=== PATIENT | male | born 1955 | race Caucasian/White ===

== ENCOUNTER 2024-03-09 16:11 | Emergency (ER) | payer MEDICARE, BC, SELFPAY ==
[2024-03-09] VITALS (14 sets, daily range): BP systolic 129–158; BP diastolic 64–102; PULSE 61–78; RESP 18; TEMP 35.3; O2SAT 96–99; BMI 29.3
--- NOTE | 2024-03-09 16:52 | ED_ITS ---
HPI - General Adult General Chief complaint: Chest Pain Stated complaint: Chest pain Time Seen by Provider: 03/09/24 16:45 History of Present Illness HPI narrative: Patient reports sternal pain that is tender to the touch. He reports that this happens intermittently for the past month. Was seen at [facility] where an EKG was done and he was told to come to ED due to low heart rate. Chest pain is currently absent. 68-year-old man presenting to the emergency department with concern of reproducible sternal area chest discomfort. He describes it as a rectangle in the mid chest that comes and goes. Been on off over the last month or so. Apparently was noted to have a bradycardia when presented to the clinic and recommended to the emergency department for low heart rate. 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 Wondering he may have been aggravating this chest discomfort that he describes as a rectangle in the mid chest a pressure that is intermittent not associated with exertion, wondering if he may have aggravated this in his work. Intermittently short of air but not persistently so. He describes a need occasionally of just needing to take a deep breath. Began to think that it would be a good idea just to have this evaluated as I think he is considering this might represent cardiovascular disease. No noted rashes/blisters. Occasional minimal heartburn but not consistent with this symptom. Significant other notes that had a couple episodes of pericarditis. My deeper review of records shows pericarditis diagnosed in June of 2011. Did have an echocardiogram at that time which showed 55% ejection fraction no effusion. Related Data Allergies Allergy/AdvReac Type Severity Reaction Status Date / Time No Known Drug Allergies Allergy Verified 10/06/22 17:25 Review of Systems Status of ROS: Reports: 6 or more systems reviewed and unremarkable except as noted in History and below [facility] Social History Smoking Status: Never smoker How often do you have a drink containing alcohol: 4 or more times a week AUDIT-C Alcohol total score: 4 Non-prescribed substance use: denies use Exam Narrative: Exam Narrative: Very pleasant. Calm. Blunted affect. Easily. Lungs actually sound clear equal expansion excursion. No supraclavicular crepitus. Without consistently reproducible discomfort to palpation of the chest wall. No erythema or swelling. Extremities are well perfused without edema. Heart is irregularly irregular on auscultation. This appears to be consistent with PVCs that I am observing on monitor. These appear to be asymptomatic however for Mr. Shaver when I ask. Const: Vital Signs, click to edit/add: Vital Signs - 24 hr 03/09/24 16:15 03/09/24 16:31 03/09/24 16:32 Temperature 95.6 F L Pulse Rate 68 70 Pulse Rate [Pulse Oximeter] 78 Respiratory Rate 18 Blood Pressure 129/72 Blood Pressure [Ri ght Upper Arm] 149/64 H Pulse Oximetry 98 96 96 Oxygen Delivery Me thod Room Air 03/09/24 17:00 03/09/24 17:30 03/09/24 17:37 Temperature Pulse Rate 64 64 61 Pulse Rate [Pulse Oximeter] Respiratory Rate Blood Pressure 129/86 Blood Pressure [Ri ght Upper Arm] Pulse Oximetry 97 98 99 Oxygen Delivery Me thod 03/09/24 17:38 03/09/24 18:00 03/09/24 18:03 Temperature Pulse Rate 73 73 74 Pulse Rate [Pulse Oximeter] Respiratory Rate Blood Pressure 142/86 H Blood Pressure [Ri ght Upper Arm] Pulse Oximetry 98 99 98 Oxygen Delivery Me thod 03/09/24 18:04 03/09/24 18:30 03/09/24 18:33 Temperature Pulse Rate 68 72 66 Pulse Rate [Pulse Oximeter] Respiratory Rate Blood Pressure 152/102 H Blood Pressure [Ri ght Upper Arm] Pulse Oximetry 99 99 99 Oxygen Delivery Me thod Documenting provider has reviewed patient's vital signs: yes Course Vital Signs Vital signs: Initial Vital Signs Temperature 95.6 F L 03/09/24 16:15 Temperature Source Temporal Artery Scan 03/09/24 16:15 Pulse Rate 78 03/09/24 16:15 Respiratory Rate 18 03/09/24 16:15 Blood Pressure 149/64 H 03/09/24 16:15 Blood Pressure Mean 92 03/09/24 16:15 Pulse Oximetry 98 03/09/24 16:15 Oxygen Delivery Method Room Air 03/09/24 16:15 Vital Signs Temperature 95.6 F L 03/09/24 16:15 Pulse Rate 78 03/09/24 16:15 Respiratory Rate 18 03/09/24 16:15 Blood Pressure 149/64 H 03/09/24 16:15 Pulse Oximetry 98 03/09/24 16:15 Oxygen Delivery Method Room Air 03/09/24 16:15 Temperature 95.6 F L 03/09/24 16:15 Pulse Rate 67 03/09/24 18:34 Respiratory Rate 18 03/09/24 16:15 Blood Pressure 158/102 H 03/09/24 19:02 Pulse Oximetry 98 03/09/24 18:34 Oxygen Delivery Method Room Air 03/09/24 16:15 Medications Administered Medications: Discontinued Medications Generic Name Dose Route Start Last Admin Trade Name Freq PRN Reason Stop Dose Admin Sodium Chloride 1,000 mls @ 1,000 mls/hr 03/09/24 17:09 03/09/24 19:03 0.9 % Sodium Chloride 1000 Ml IV 03/09/24 18:08 Infused .Q1H ONE Infusion Medical Decision Making MDM Narrative Medical decision making narrative: Would evaluate for evidence of cardiovascular ischemia or disease. Continue to watch on monitor with these PVCs. I suspect that these PVCs were resulting in apparent bradycardia. Has not been actually bradycardic here. Could be chest wall strain given his work or pericarditis although this is discomfort is not persistently reproducible. Could otherwise represent some tachyarrhythmia or pericarditis or pneumomediastinum or pneumothorax. Will monitor here in the ER. Does not feel he needs any intervention for pain or nausea. Chest x-ray reviewed by me appears to show some pulmonary edema. Somewhat enlarged cardiac silhouette Radiology over-read as below Study:?XRay-Chest 1V PORTABLE-03/09/2024 5:31:31 PM Ordering Physician:GLO Final Report: Indication: Chest pain Technique: AP view of the chest. Comparison: None. Findings: Low lung volumes Moderately enlarged cardiomediastinal silhouette. Moderate interstitial prominence and pulmonary vascular prominence. No focal consolidation, pleural effusions, or visualized pneumothorax. Impression: Moderate pulmonary edema. Labs are reassuring though there is moderately elevated proBNP at about 1500 Throughout time in the emergency department continued to have PVCs including some bigeminy but apparently these were asymptomatic. Vitals stable with oximetry in high 90s and no respiratory distress otherwise. Does not appear to need diuresis. Do have concern of underlying heart failure that might be contributing. Will need further evaluation for this. I would try to quantify these PVCs. Would appear to be safe for discharge and would like to go. See patient discharge plan for further discussion Lab Data Lab results reviewed: Yes I reviewed the patient's lab results Labs: Lab Results 03/09/24 Range/Units 17:30 WBC 7.05 (4.50-11.00) K/uL RBC 3.81 L (4.30-5.90) m/uL Hgb 13.2 L (13.5-17.5) gm/dL Hct 38.2 (37.0-53.0) % MCV 100 (80-100) fL MCH 35 H (26-34) pg MCHC 35 (32-36) gm/dL RDW Coeff of Jackson 12.3 (11.5-15.5) % Plt Count 231 (140-440) K/uL Neut % (Auto) 45.5 (42.0-72.0) % Lymph % (Auto) 36.5 (20-44) % [place] % (Auto) 11.6 H (0.0-11.0) % Eos % (Auto) 4.5 (0.0-7.0) % Baso % (Auto) 1.0 (0.0-3.0) % Neut # (Auto) 3.21 (1.7-7.0) K/uL Lymph # (Auto) 2.57 (0.90-2.90) K/uL [place] # (Auto) 0.80 (0.00-0.90) K/UL Eos # (Auto) 0.32 (0.00-0.50) K/uL Baso # (Auto) 0.07 (0.00-0.30) K/uL Abs Immat Gran (auto) 0.06 (0.00-0.30) K/uL Imm/Tot Granulo (auto) 0.9 % D-Dimer Quant (PE/DVT) 0.12 (0.00-0.50) ug/ml Sodium 133 L (135-149) mmol/L Potassium 4.0 (3.6-5.1) mmol/L Chloride 101 (96-114) mmol/L Carbon Dioxide 29 (20-32) mmol/L Anion Gap 3 L (7-15) mEq/L BUN 12 (7-30) mg/dL Creatinine 0.6 (0.5-1.5) mg/dL Estimated Creat Clear 77.39 Estimated GFR 106 ml/min Glucose 101 (60-115) mg/dL Calcium 8.7 (8.4-10.6) mg/dL Total Bilirubin 0.5 (0.1-1.5) mg/dL Direct Bilirubin 0.1 (0.0-0.5) mg/dL AST 22 (12-35) U/L ALT 18 (4-50) U/L Alkaline Phosphatase 51 (40-150) U/L Troponin I < 0.01 L (0.01-0.04) ng/mL C-Reactive Protein < 0.5 L (0.5-1.0) mg/dL NT-Pro-B Natriuret Pep 1570 pg/mL Total Protein 7.2 (6.0-8.3) g/dL Albumin 4.2 (3.3-5.0) g/dL Lipase 38 (23-300) U/L Ethyl Alcohol < 0.01 L (0.01-0.03) % ECG Data Attestation: I personally reviewed and interpreted this ECG as follows: (Sinus rhythm with PVCs; frequent. Rate of 73) Discharge Plan Discharge Clinical Impression: Frequent PVCs, Air hunger, Chest pressure Patient Disposition: Home w/ Parent or Adult Condition: Stable Additional Instructions: Return Holter monitor per instructions. This information gets sent Cardiology and I would expect results in about a week or so. I would ask you then to follow up with your primary care provider to consider evaluation for your heart. This might include another echocardiogram or stress echocardiogram. Return here for increasing and persistent chest pain or shortness of breath, associated lightheadedness. Follow Up/Referrals: Bello Wolf MD [Primary Care Provider] - Stand Alone Forms: [facility] [employer] Info Instructions
--- NOTE | 2024-03-09 17:10 | XR_ITS ---
Patient: MARY SOLORIO Facility:?[facility] Patient ID:?[id number] Site Patient ID:?[id number]. Site :?[id number] Study:?XRay-Chest 1V PORTABLE-03/09/2024 5:31:31 PM Ordering Physician:GLO Final Report: Indication: Chest pain Technique: AP view of the chest. Comparison: None. Findings: Low lung volumes Moderately enlarged cardiomediastinal silhouette. Moderate interstitial prominence and pulmonary vascular prominence. No focal consolidation, pleural effusions, or visualized pneumothorax. Impression: Moderate pulmonary edema. Dictated by Isak Khan MD @ 03/09/2024 6:02:06 PM Signed by:?Isak Kahn MD @03/09/2024 6:02:06 PM (Electronic Signature)
[2024-03-09] MEDS: 0.9 % SODIUM CHLORIDE 1000 ml 1,000 ML IV (17:40)
[2024-03-09 17:46] LABS: Basophils Absolute Auto 0.07 K/uL (0.00-0.30); Eosinophils Absolute Auto 0.32 K/uL (0.00-0.50); Eosinophils Percent Auto 4.5 % (0.0-7.0); Hematocrit 38.2 % (37.0-53.0); Hemoglobin* 13.2 gm/dL (13.5-17.5); Immature Granulocytes Abs Auto 0.06 K/uL (0.00-0.30); Immature Granulocytes Pct Auto 0.9 %; Lymphocytes Absolute Auto 2.57 K/uL (0.90-2.90); Lymphocytes Percent Auto 36.5 % (20-44); Mean Corpuscular HGB Conc 35 gm/dL (32-36); Mean Corpuscular Hemoglobin 35 pg (26-34); Mean Corpuscular Volume 100 fL (80-100); Monocytes Percent Auto 11.6 % (0.0-11.0); Neutrophils Absolute Auto 3.21 K/uL (1.7-7.0); Neutrophils Percent Auto 45.5 % (42.0-72.0); Platelet Count* 231 K/uL (140-440); RDW Coefficient of Variation % 12.3 % (11.5-15.5); Red Blood Count 3.81 m/uL (4.30-5.90); White Blood Count* 7.05 K/uL (4.50-11.00)
[2024-03-09 17:50] LABS: Slide Review Reflex No
[2024-03-09 18:05] LABS: D Dimer Quantitative* 0.12 ug/ml (0.00-0.50)
[2024-03-09 18:15] LABS: Albumin* 4.2 g/dL (3.3-5.0); Chloride* 101 mmol/L (96-114)
[2024-03-09 18:16] LABS: Sodium* 133 mmol/L (135-149)
[2024-03-09 18:17] LABS: Creatinine* 0.6 mg/dL (0.5-1.5); Est. Creatinine Clearance* 77.39; Estimated Glomerular Filt Rate 106 ml/min
[2024-03-09 18:18] LABS: Alanine Aminotransferase* 18 U/L (4-50); Alkaline Phosphatase* 51 U/L (40-150); Anion Gap 3 mEq/L (7-15); Aspartate Amino Transferase* 22 U/L (12-35); Bilirubin Direct* 0.1 mg/dL (0.0-0.5); Bilirubin Total* 0.5 mg/dL (0.1-1.5); Blood Urea Nitrogen* 12 mg/dL (7-30); Carbon Dioxide* 29 mmol/L (20-32); Glucose* 101 mg/dL (60-115); Lipase* 38 U/L (23-300); Total Protein* 7.2 g/dL (6.0-8.3)
[2024-03-09 18:19] LABS: Calcium* 8.7 mg/dL (8.4-10.6)
[2024-03-09 18:23] LABS: C Reactive Protein* < 0.5 mg/dL (0.5-1.0); Ethanol* < 0.01 % (0.01-0.03)
[2024-03-09 18:34] LABS: NT Pro B Type NatriureticPept* 1570 pg/mL; Troponin I* < 0.01 ng/mL (0.01-0.04)
== END 2024-03-09 19:52 | disposition home or self-care (01) ==
PROVIDERS: Emergency Provider Family Medicine; PCP Family Medicine
DX: I49.3 Ventricular premature depolarization (principal); R07.89 Other chest pain; F45.8 Other somatoform disorders
CPT/HCPCS: 36415; 71045; 80048; 80076; 82077; 83690; 83880; 84484; 85025; 85379; 86140; 93005; 93225; 93226; 99284; 99285; J7030

== ENCOUNTER 2024-05-25 13:55 | Emergency (ER) | payer MEDICARE, BC, SELFPAY ==
[2024-05-25 14:05] VITALS: BP 151/76; PULSE 63; RESP 18; TEMP 36.8; O2SAT 98; BMI 28.9
--- NOTE | 2024-05-25 15:00 | CRLHL7_ITS ---
For Patients: As a result of the Century Cures Act, medical imaging exams and procedure reports are released immediately into your electronic medical record. You may view this report before your referring provider. If you have questions, please contact your health care provider. Indication: CHEST PAIN Technique: AP view of the chest. Comparison: 03/09/2024 Findings: Low lung volumes. Mildly enlarged cardiomediastinal silhouette. Mild pulmonary edema. Medial right lung base opacity. Impression: 1. Mild pulmonary edema. 2. Medial right lung base opacity is again seen, which may represent atelectasis or infection. Given persistence, consider outpatient CT for further evaluation. Dictated by Isak Khan MD @ 05/25/2024 3:29:07 PM (Electronically Signed)
[2024-05-25 15:06] LABS: Troponin, Point-of-Care* 0.01 ng/ml (0.01-0.04)
[2024-05-25 15:30] VITALS: BP 142/100; PULSE 72; RESP 18; O2SAT 97
[2024-05-25 15:37] LABS: Basophils Percent Auto 0.5 % (0.0-3.0); Eosinophils Percent Auto 1.7 % (0.0-7.0); Hematocrit 39.1 % (37.0-53.0); Hemoglobin* 13.5 gm/dL (13.5-17.5); Immature Granulocytes Pct Auto 0.5 %; Lymphocytes Percent Auto 15.6 % (20-44); Mean Corpuscular HGB Conc 35 gm/dL (32-36); Mean Corpuscular Hemoglobin 34 pg (26-34); Mean Corpuscular Volume 99 fL (80-100); Neutrophils Percent Auto 72.7 % (42.0-72.0); Platelet Count* 226 K/uL (140-440); RDW Coefficient of Variation % 12.2 % (11.5-15.5); Red Blood Count 3.94 m/uL (4.30-5.90); Slide Review Reflex No; White Blood Count* 12.24 K/uL (4.50-11.00)
[2024-05-25 15:46] LABS: Chloride* 97 mmol/L (96-114); D Dimer Quantitative* < 0.27 ug/ml (0.00-0.50); Potassium* 4.1 mmol/L (3.6-5.1); Sodium* 130 mmol/L (135-149)
[2024-05-25 15:49] LABS: Anion Gap 9 mEq/L (7-15); Blood Urea Nitrogen* 15 mg/dL (7-30); Calcium* 8.7 mg/dL (8.4-10.6); Carbon Dioxide* 24 mmol/L (20-32); Creatinine* 0.7 mg/dL (0.5-1.5); Est. Creatinine Clearance* 76.35; Estimated Glomerular Filt Rate 101 ml/min; Glucose* 96 mg/dL (60-115)
--- NOTE | 2024-05-25 16:03 | ED.CHESTPAIN ---
HPI - Chest Pain General Chief Complaint: Chest Pain <Danielito Cuellar MD - Last Filed: 05/26/24 19:53> Stated Complaint: Chest Pain, Shortness of Breath <Danielito Cuellar MD - Last Filed: 05/26/24 19:53> Time Seen by Provider: 05/25/24 14:07 <Danielito Cuellar MD - Last Filed: 05/26/24 19:53> History of Present Illness HPI narrative: Patient is a 69-year-old gentleman comes in today with chest pain. Patient has history of frequent PVCs. Upon arrival his EKG shows continued PVCs. Patient has history of pericardial effusions in the distant past. Also has history of pleuritic pain. He is in the process of being evaluated for his cardiac symptoms most prominently has frequent PVCs with Cardiology but his symptoms worsened today he developed chest pain. The pain is 6/10 in intensity in the anterior chest. He has no significant worsening with exertion. No diaphoresis no nausea no vomiting no fevers no chills. <Danielito Cuellar MD - Last Filed: 05/26/24 19:53> Related Data Home Medications: Home Medications ?Medication ?Instructions ?Recorded ?Confirmed furosemide 20 mg tablet 20 mg PO DAILY 05/25/24 05/25/24 isosorbide mononitrate 30 mg 30 mg PO DAILY 05/25/24 05/25/24 tablet,extended release 24 hr metoprolol succinate 25 mg 25 mg PO DAILY 05/25/24 05/25/24 tablet,extended release 24 hr <Danielito Cuellar MD - Last Filed: 05/26/24 19:53> Allergies/Adverse Reactions: Allergies Allergy/AdvReac Type Severity Reaction Status Date / Time No Known Drug Allergies Allergy Verified 10/06/22 17:25 <Danielito Cuellar MD - Last Filed: 05/26/24 19:53> Review of Systems Status of ROS Reports: 10 or more systems reviewed and unremarkable except as noted in History and below <Danielito Cuellar MD - Last Filed: 05/26/24 19:53> PFSH PFSH Social History: Social History Smoking Status: Never smoker How often do you have a drink containing alcohol: 4 or more times a week How often do you have six or more drinks on one occasion: Never AUDIT-C Alcohol total score: 4 Non-prescribed substance use: denies use service: No <Danielito Cuellar MD - Last Filed: 05/26/24 19:53> Exam Narrative Exam Narrative: EXAM GENERAL: Patient appears comfortable and well. EYES: No scleral icterus. LYMPH: No supraclavicular or cervical lymphadenopathy. SKIN: Visible skin seen during exam normal or with benign process only. EXT: No dependent lower extremity pedal edema. HEART: Regular rate and rhythm with no murmurs, rubs, or gallops. LUNGS: Clear to auscultation bilaterally with no crackles or wheezes. ABD: Soft, non tender, non distended. PSYCH: Good eye contact, speech is not pressured. <Danielito Cuellar MD - Last Filed: 05/26/24 19:53> Const Vital Signs, click to edit/add: Vital Signs - 24 hr 05/25/24 14:05 Temperature 98.2 F Pulse Rate [Right Pulse Oximeter] 63 Respiratory Rate 18 Blood Pressure [Right Upper Arm] 151/76 H Pulse Oximetry 98 Oxygen Delivery Method Room Air <Danielito Cuellar MD - Last Filed: 05/26/24 19:53> Vital Signs - 24 hr 05/25/24 14:05 Temperature 98.2 F Pulse Rate [Right Pulse Oximeter] 63 Respiratory Rate 18 Blood Pressure [Right Upper Arm] 151/76 H Pulse Oximetry 98 Oxygen Delivery Method Room Air <Stanford Dickson MD - Last Filed: 05/25/24 17:51> Course Course ED Course: Patient seen and examined. EKG reviewed showing frequent PVCs. Initial troponin D-dimer electrolytes and CBC are unremarkable. When patient will continue observation until 2nd troponin at 90 minutes can be obtained. <Danielito Cuellar MD - Last Filed: 05/26/24 19:53> Vital Signs Vital signs: Initial Vital Signs Temperature 98.2 F 05/25/24 14:05 Temperature Source Temporal Artery Scan 05/25/24 14:05 Pulse Rate 63 05/25/24 14:05 Pulse Rhythm Regular 05/25/24 14:05 Pulse Strength 3+ Normal 05/25/24 14:05 Respiratory Rate 18 05/25/24 14:05 Blood Pressure 151/76 H 05/25/24 14:05 Blood Pressure Mean 101 05/25/24 14:05 Blood Pressure Position Semi-Fowlers 05/25/24 14:05 Pulse Oximetry 98 05/25/24 14:05 Oxygen Delivery Method Room Air 05/25/24 14:05 Vital Signs Temperature 98.2 F 05/25/24 14:05 Pulse Rate 63 05/25/24 14:05 Respiratory Rate 18 05/25/24 14:05 Blood Pressure 151/76 H 05/25/24 14:05 Pulse Oximetry 98 05/25/24 14:05 Oxygen Delivery Method Room Air 05/25/24 14:05 Temperature 98.2 F 05/25/24 14:05 Pulse Rate 97 05/25/24 17:52 Respiratory Rate 18 05/25/24 17:52 Blood Pressure 145/78 H 05/25/24 17:52 Pulse Oximetry 97 05/25/24 15:30 Oxygen Delivery Method Room Air 05/25/24 14:05 <Danielito Cuellar MD - Last Filed: 05/26/24 19:53> Initial Vital Signs Temperature 98.2 F 05/25/24 14:05 Temperature Source Temporal Artery Scan 05/25/24 14:05 Pulse Rate 63 05/25/24 14:05 Pulse Rhythm Regular 05/25/24 14:05 Pulse Strength 3+ Normal 05/25/24 14:05 Respiratory Rate 18 05/25/24 14:05 Blood Pressure 151/76 H 05/25/24 14:05 Blood Pressure Mean 101 05/25/24 14:05 Blood Pressure Position Semi-Fowlers 05/25/24 14:05 Pulse Oximetry 98 05/25/24 14:05 Oxygen Delivery Method Room Air 05/25/24 14:05 Vital Signs Temperature 98.2 F 05/25/24 14:05 Pulse Rate 63 05/25/24 14:05 Respiratory Rate 18 05/25/24 14:05 Blood Pressure 151/76 H 05/25/24 14:05 Pulse Oximetry 98 05/25/24 14:05 Oxygen Delivery Method Room Air 05/25/24 14:05 Temperature 98.2 F 05/25/24 14:05 Pulse Rate 97 05/25/24 17:52 Respiratory Rate 18 05/25/24 17:52 Blood Pressure 145/78 H 05/25/24 17:52 Pulse Oximetry 97 05/25/24 15:30 Oxygen Delivery Method Room Air 05/25/24 14:05 <Stanford Dickson MD - Last Filed: 05/25/24 17:51> MDM - Chest Pain MDM Narrative Medical decision making narrative: Repeat troponin returns at 0.01. The patient is asymptomatic and okay to return home. He did display some premature beats and a few of them came in rather rapid succession. This happened during his stay here while on the monitor. He was asymptomatic throughout that time. He states that he has been on a Holter monitor and Zio patch in the past. He is okay to be discharged home to resume current plans. <Stanford Dickson MD - Last Filed: 05/25/24 17:51> Lab Data Labs: Lab Results 05/25/24 05/25/24 Range/Units 14:17 14:34 WBC 12.24 H (4.50-11.00) K/uL RBC 3.94 L (4.30-5.90) m/uL Hgb 13.5 (13.5-17.5) gm/dL Hct 39.1 (37.0-53.0) % MCV 99 (80-100) fL MCH 34 (26-34) pg MCHC 35 (32-36) gm/dL RDW Coeff of [place] 12.2 (11.5-15.5) % Plt Count 226 (140-440) K/uL Neut % (Auto) 72.7 H (42.0-72.0) % Lymph % (Auto) 15.6 L (20-44) % [place] % (Auto) 9.0 (0.0-11.0) % Eos % (Auto) 1.7 (0.0-7.0) % Baso % (Auto) 0.5 (0.0-3.0) % Neut # (Auto) 8.90 H (1.7-7.0) K/uL Lymph # (Auto) 1.90 (0.90-2.90) K/uL [place] # (Auto) 1.10 H (0.00-0.90) K/UL Eos # (Auto) 0.20 (0.00-0.50) K/uL Baso # (Auto) 0.10 (0.00-0.30) K/uL Abs Immat Gran (auto) 0.10 (0.00-0.30) K/uL Imm/Tot Granulo (auto) 0.5 % D-Dimer Quant (PE/DVT) < 0.27 (0.00-0.50) ug/ml Sodium 130 L (135-149) mmol/L Potassium 4.1 (3.6-5.1) mmol/L Chloride 97 (96-114) mmol/L Carbon Dioxide 24 (20-32) mmol/L Anion Gap 9 (7-15) mEq/L BUN 15 (7-30) mg/dL Creatinine 0.7 (0.5-1.5) mg/dL Estimated Creat Clear 76.35 Estimated GFR 101 ml/min Glucose 96 (60-115) mg/dL Calcium 8.7 (8.4-10.6) mg/dL POC Troponin I 0.01 (0.01-0.04) ng/ml <Danielito Cuellar MD - Last Filed: 05/26/24 19:53> Lab Results 05/25/24 05/25/24 Range/Units 14:17 14:34 WBC 12.24 H (4.50-11.00) K/uL RBC 3.94 L (4.30-5.90) m/uL Hgb 13.5 (13.5-17.5) gm/dL Hct 39.1 (37.0-53.0) % MCV 99 (80-100) fL MCH 34 (26-34) pg MCHC 35 (32-36) gm/dL RDW Coeff of [place] 12.2 (11.5-15.5) % Plt Count 226 (140-440) K/uL Neut % (Auto) 72.7 H (42.0-72.0) % Lymph % (Auto) 15.6 L (20-44) % [place] % (Auto) 9.0 (0.0-11.0) % Eos % (Auto) 1.7 (0.0-7.0) % Baso % (Auto) 0.5 (0.0-3.0) % Neut # (Auto) 8.90 H (1.7-7.0) K/uL Lymph # (Auto) 1.90 (0.90-2.90) K/uL [place] # (Auto) 1.10 H (0.00-0.90) K/UL Eos # (Auto) 0.20 (0.00-0.50) K/uL Baso # (Auto) 0.10 (0.00-0.30) K/uL Abs Immat Gran (auto) 0.10 (0.00-0.30) K/uL Imm/Tot Granulo (auto) 0.5 % D-Dimer Quant (PE/DVT) < 0.27 (0.00-0.50) ug/ml Sodium 130 L (135-149) mmol/L Potassium 4.1 (3.6-5.1) mmol/L Chloride 97 (96-114) mmol/L Carbon Dioxide 24 (20-32) mmol/L Anion Gap 9 (7-15) mEq/L BUN 15 (7-30) mg/dL Creatinine 0.7 (0.5-1.5) mg/dL Estimated Creat Clear 76.35 Estimated GFR 101 ml/min Glucose 96 (60-115) mg/dL Calcium 8.7 (8.4-10.6) mg/dL POC Troponin I 0.01 (0.01-0.04) ng/ml <Stanford Dickson MD - Last Filed: 05/25/24 17:51> Discharge Plan Discharge Clinical Impression: Chest pain <Danielito Cuellar MD - Last Filed: 05/26/24 19:53> Patient Disposition: Home, Self-Care <Danielito Cuellar MD - Last Filed: 05/26/24 19:53> Condition: Stable <Danielito Cuellar MD - Last Filed: 05/26/24 19:53> Additional Instructions: Resume current plans. Follow up with MD for ongoing management. Take medications as prescribed. Return if worsening. <Danielito Cuellar MD - Last Filed: 05/26/24 19:53> Prescriptions: No Action isosorbide mononitrate 30 mg tablet extended release 24 hr 30 mg PO DAILY furosemide 20 mg tablet 20 mg PO DAILY metoprolol succinate 25 mg tablet extended release 24 hr 25 mg PO DAILY <Danielito Cuellar MD - Last Filed: 05/26/24 19:53> Follow Up/Referrals: Bello Wolf MD [Primary Care Provider] - <Danielito Cuellar MD - Last Filed: 05/26/24 19:53> Stand Alone Forms: [facility] Info Instructions <Danielito Cuellar MD - Last Filed: 05/26/24 19:53>
[2024-05-25 17:52] VITALS: BP 145/78; PULSE 97; RESP 18
== END 2024-05-25 17:52 | disposition home or self-care (01) ==
PROVIDERS: Emergency Provider Internal Medicine; PCP Family Medicine
DX: R07.9 Chest pain, unspecified (principal)
CPT/HCPCS: 36415; 71045; 80048; 84484; 85025; 85379; 99283; 99284

== ENCOUNTER 2024-09-14 14:37 | Outpatient (CLI) | payer MEDICARE, BC, SELFPAY | END 2024-09-14 14:38 | disposition home or self-care (01) | LOC: AMB 09-18 00:09 | PROVIDERS: PCP Nurse Practitioner Family; Visit Provider Emergency Medicine Emergency Medical Services | DX: R42 Dizziness and giddiness (principal); I95.9 Hypotension, unspecified; R00.1 Bradycardia, unspecified | CPT/HCPCS: A0425; A0427 ==

== ENCOUNTER 2024-09-14 15:07 | Emergency (ER) | payer MEDICARE, BC, SELFPAY ==
[2024-09-14] VITALS (8 sets, daily range): BP systolic 129; BP diastolic 85; PULSE 45–70; RESP 18; TEMP 35.7; O2SAT 90–98; BMI 29.3
--- NOTE | 2024-09-14 15:49 | ED.GENADULT ---
HPI - General Adult General Date Seen: 09/14/24 Chief complaint: Arrhythmia/Palpitations Stated complaint: Lightheaded, dizzy Time Seen by Provider: 09/14/24 15:43 History of Present Illness HPI narrative: 69 yo M presenting to the ER today with lightheadedness and dizziness. He was at the dentist today for a tooth extraction. He receive 4 doses of lidocaine with epi for dental anesthesia and became hypotensive and bradycardic. He was brought in by EMS. Paramedics were unsure of his presenting heart rate but he had a systolic blood pressure of 67. Oral surgeon gave the patient 2 doses of atropine and 250 mL of saline. Patient is feeling better. Blood pressure came up to 107 and heart rate came up to the 70s. He is currently scheduled to get a pacemaker. Per medical record. In [place] ER 05/25/2024 for chest pain. Per that record, Has a history of frequent PVCs. She per records from [facility] link he has a history of nonrheumatic mitral valve regurgitation, ejection fraction less than 50%, nonobstructive coronary artery disease, history of nonsustained V-tach, He follows with [facility]. [place] to records from August 29 they were increasing his losartan and having him recheck a BMP. He was to follow-up with heart failure clinic in 1 month. Per cardiology notes from 08/29/2024 Luciano Shaver is a 69 y.o. male with history of nonischemic cardiomyopathy with EF 40>45%%, frequent PVCs/NSVT with a burden of around 25%, moderate nonobstructive coronary artery disease, moderate to severe mitral regurgitation, tobacco use, alcohol abuse, hypertension who is here for follow-up since last visit he underwent colonoscopy which had not shown any significant malignancy. Following this he underwent coronary angiogram which showed moderate nonobstructive coronary artery disease and EP study with which no significant VT was inducible. Linq monitor was implanted and he was started on beta-blockers. His Holter monitors had not shown any further bradycardia arrhythmias. At last Linq check he still had PVC burden of around 26% and metoprolol dose was increased to 37.5 mg once a day 5 days ago. We had ordered the cardiac MRI which unfortunately was truncated study and incomplete information obtained as patient was significantly claustrophobic and ended the study prematurely. He then underwent a PET scan which has not shown any cardiac sarcoid. At last visit I referred him to EP for consideration of antiarrhythmic therapy given ongoing high burden of PVCs. We had also recommended starting spironolactone which patient declined due to his side effect profile and risk of gynecomastia. Since that visit he met with EP MAUREEN Hollins and repeat echocardiogram was done which showed EF of 45%. Due to his ongoing low heart rates and PVCs pacemaker implantation was advised which is currently scheduled for 10/17/2024. This would allow for possibly suppression of PVCs and up titration of GDMT and addition of antiarrhythmics. It sounds like he has been doing fine lately. No recent trouble with shortness of breath. No recent chest pains. No new swelling in his legs. He has been taking all of his meds. It sounds like he does have fairly frequent PVCs and he believes his normal heart rate is typically in the 60s and he knows he has fairly frequent PVCs. His thinks it is usually about every 3rd or 4th heart beat. Patient reports that he used to be very symptomatic with PVCs and felt every palpitation. His symptoms went away after he stopped drinking so much diet Coke. He does not feel as PVCs anymore. However he knows he still has a lot of home. Related Data Home Medications ?Medication ?Instructions ?Recorded ?Confirmed furosemide 20 mg tablet 20 mg PO DAILY 05/25/24 09/14/24 isosorbide mononitrate 30 mg 30 mg PO DAILY 05/25/24 05/25/24 tablet,extended release 24 hr metoprolol succinate 25 mg 25 mg PO DAILY 05/25/24 09/14/24 tablet,extended release 24 hr atorvastatin 40 mg tablet 40 mg PO DAILY 09/14/24 09/14/24 sacubitril 24 mg-valsartan 26 mg 1 tab PO BID 09/14/24 09/14/24 tablet (Entresto) Allergies Allergy/AdvReac Type Severity Reaction Status Date / Time No Known Drug Allergies Allergy Verified 10/06/22 17:25 [facility] Social History Smoking Status: Never smoker How often do you have a drink containing alcohol: 4 or more times a week How often do you have six or more drinks on one occasion: Never AUDIT-C Alcohol total score: 4 Non-prescribed substance use: denies use service: No Exam Narrative: Exam Narrative: Constitutional: Appears well-developed and well-nourished. Alert. Conversant. Non toxic. HENT: Head: Atraumatic. Nose: Nose normal. Mouth/Throat: Oral mucosa is clear and moist. no trismus. Eyes: Conjunctivae normal. EOM normal. Pupils equal, round, and reactive to light. No scleral icterus. Neck: Normal range of motion. Neck supple. No tracheal deviation present. Cardiovascular: Normal rate, he does have a frequently skipping rhythm corresponding to visualize PVCs on his pvc monitor. No gallop. No friction rub. No murmur heard. Symmetric radial and DP artery pulses . No JVD Pulmonary/Chest: Effort normal. No stridor. No respiratory distress. No wheezes. No rales. No rhonchi . No tenderness. Abdominal: Soft. Bowel sounds normal. No distension. No mass. No tenderness. No rebound. No guarding. Musculoskeletal: RUE: Normal range of motion. No tenderness. No deformity LUE: Normal range of motion. No tenderness. No deformity RLE: Normal range of motion. No edema. No tenderness. No deformity LLE: Normal range of motion. No edema. No tenderness. No deformity Lymph: No cervical adenopathy. Neurological: Alert and oriented to person, place, and time. Normal strength. CN II-VII intact. No sensory deficit. GCS eye subscore is 4. GCS verbal subscore is 5. GCS motor subscore is 6. Normal coordination Skin: Skin is warm and dry. No rash noted. No pallor. Normal capillary refill. Psychiatric: Normal mood. Normal affect. Const: Vital Signs, click to edit/add: Vital Signs - 24 hr 09/14/24 15:13 09/14/24 15:15 09/14/24 15:43 Temperature 96.3 F L Pulse Rate 45 L Pulse Rate [Pulse Oximeter] 70 Respiratory Rate 18 Blood Pressure [Le ft Upper Arm] 129/85 Pulse Oximetry 94 94 90 Oxygen Delivery Me thod Room Air 09/14/24 15:45 09/14/24 16:00 09/14/24 16:02 Temperature Pulse Rate Pulse Rate [Pulse Oximeter] Respiratory Rate Blood Pressure [Le ft Upper Arm] Pulse Oximetry 92 93 95 Oxygen Delivery Me thod 09/14/24 16:15 09/14/24 17:20 Temperature Pulse Rate Pulse Rate [Pulse Oximeter] Respiratory Rate Blood Pressure [Le ft Upper Arm] Pulse Oximetry 92 98 Oxygen Delivery Me thod Course Vital Signs Vital signs: Initial Vital Signs Temperature 96.3 F L 09/14/24 15:13 Temperature Source Temporal Artery Scan 09/14/24 15:13 Pulse Rate 70 09/14/24 15:13 Respiratory Rate 18 09/14/24 15:13 Blood Pressure 129/85 09/14/24 15:13 Blood Pressure Mean 99 09/14/24 15:13 Blood Pressure Position Supine 09/14/24 15:13 Pulse Oximetry 94 09/14/24 15:13 Oxygen Delivery Method Room Air 09/14/24 15:13 Vital Signs Temperature 96.3 F L 09/14/24 15:13 Pulse Rate 70 09/14/24 15:13 Respiratory Rate 18 09/14/24 15:13 Blood Pressure 129/85 09/14/24 15:13 Pulse Oximetry 94 09/14/24 15:13 Oxygen Delivery Method Room Air 09/14/24 15:13 Temperature 96.3 F L 09/14/24 15:13 Pulse Rate 45 L 09/14/24 15:43 Respiratory Rate 18 09/14/24 15:13 Blood Pressure 129/85 09/14/24 15:13 Pulse Oximetry 98 09/14/24 17:20 Oxygen Delivery Method Room Air 09/14/24 15:13 Medical Decision Making MDM Narrative Medical decision making narrative: This is a very pleasant 69-year-old gentleman with a complex history of heart problems. He is currently big undergoing a complex workup through [facility] is on meds for congestive heart failure due to low ejection fraction. He also has a very high burden of PVCs and is scheduled to have a pacemaker implanted on October 17 so that they can suppress his PVCs. He has generally been doing well for the past several weeks. No episodes of chest pain, shortness of breath. No fluid buildup or other symptoms of worsening CHF. He was at the dentist today to get a cracked tooth pulled. He underwent for painful injections of lidocaine with epi to get his tooth numb. He apparently has a history of trauma from dentistry as a child when he had multiple dental extractions and cavities without any anesthesia at all. It sounds like the dental anesthesia was quite distressing for him and then he had an episode of near-syncope. He was apparently hypotensive and bradycardic and borderline unresponsive at the dentist's office. Unclear what his rhythm was. This may have been a vagal event. This may have been some other more sinister bradycardia. They established an IV, administered IV fluids and 2 doses of atropine (apparently 0.4 mg per each does?). Dentist office called 911. When paramedics arrived his 1st blood per sister was hypotensive and then his blood pressure and pulse rebounded without any further treatment. He is asymptomatic here in the ER. residential monitor shows sinus rhythm with frequent PVCs (every 3rd or 4th beat is a PVC). No evidence for 2nd or third-degree heart block. The patient is says he feels better and is requesting discharge home. His is very concerned about the syncopal event. We had a long discussion about the potential etiologies. The coincidence with painful injections in the mouth would strongly suggest this is a vasovagal event. However that cannot be definitively proven since we do not have access to any rhythm strips during the event itself. I contacted his public health administrator's office through [facility] and [facility]. Discussed with Dr. Montero, cardiology. We discussed whether not this symptom would warrant admission for cardiac monitoring or even transfer to [facility] so that they can expedite his pacemaker. Cardiology is very confident based on the timing and description of the events that this was a vasovagal event, and recommends against hospitalization or transfer. They would recommend that he continue on his current meds and follow up outpatient for his pacemaker. Discussed this plan of care with the patient and his family. Patient is agreeable. is somewhat reluctant. We discussed options including hospitalization here at [place] for cardiac monitoring. Patient does not want to do this and wants to discharge home. Therefore will discharge him home. Discussed return precautions and indications for immediate return to the ER. Patient and his are in agreement. ECG Data Attestation: I personally reviewed and interpreted this ECG as follows: Interpretation: Normal sinus rhythm with frequent premature ventricular complexes. Rate: 70 MS: 174 QRS axis: Normal axis. No pathologic Q-waves. ST segment/T wave: No ST segment elevations or depressions. QTc: 444. QT interval 412 Discharge Plan Discharge Clinical Impression: Near syncope, Frequent PVCs Instructions: Near Syncope (ED) Additional Instructions: As we discussed, please return to the ER immediately if you have any more episodes of dizziness, fainting spells, or lightheaded spells. Also watch for any other symptoms such as chest pain, shortness of breath, or more symptomatic PVCs. If you get worse at all, come back to the ER or see your public health administrator immediately. Please continue on your regular medications. Follow-up with your public health administrator in call Tuesday to see to can move up your planned time for your pacemaker. Prescriptions: No Action isosorbide mononitrate 30 mg tablet extended release 24 hr 30 mg PO DAILY furosemide 20 mg tablet 20 mg PO DAILY metoprolol succinate 25 mg tablet extended release 24 hr 25 mg PO DAILY atorvastatin 40 mg tablet 40 mg PO DAILY Entresto 24-26 mg tablet 1 tab PO BID Follow Up/Referrals: Bello Wolf MD [Staff Physician] - Stand Alone Forms: Employee Benefit Plans Info Instructions
== END 2024-09-14 17:27 | disposition home or self-care (01) ==
PROVIDERS: Emergency Provider Emergency Medicine; PCP Nurse Practitioner Family; Visit Provider Emergency Medicine
DX: R55 Syncope and collapse (principal); I49.3 Ventricular premature depolarization
CPT/HCPCS: 93005; 94761; 99283; 99285

== ENCOUNTER 2025-09-28 00:44 | Emergency (ER) | payer MEDICARE, BC, SELFPAY ==
--- OUTSIDE RECORDS SUMMARY | 2024-05-17 18:00 | XMS_ITS | Continuity of Care Document ---
Author Organization [facility] Address [address] [address] [place] [address] Phone Care Team Providers Care Bi Architect Name Role Phone Jasvir Wilcox MD Unavailable Unavailab le Procedures Procedure Date Colonoscopy Flex; W/remov Les- 24 Advance Directives Directive Yes / No Effective Date File Name No Information Encounters Encounter Description Practice Location Reason(s) For Visit Diagnoses Date Provider Providers Copied on Encounter [facility], [address] [address], [place], [place], [id number], [place] tel:[phone] [facility] No Information 4 Jeri Tay. [address] [place] [address], [id number], [place]. tel:[phone] [facility], [address] [address], [place], [place], [id number], [place] tel:[phone] [facility] No Information 4 Jeri Tay. [address] [place] [address], [id number], [place]. tel:[phone] Referring Provider: Jasvir Brito, [address] [place] [address], [id number]. tel:[phone] [facility], [address] [address], [facility] [place], [id number], [place] tel:[phone] [facility] No Information 4 Da Cronin. [address] [place] [address], [place], [place], [id number], [place]. tel:[phone] Family History Family Member Type Diagnosis Age At Onset No Information Immunizations Vaccine Date Status Comments tetanus toxoid, reduced diphtheria toxoid, and acellular pertussis vaccine, adsorbed administered Note: [facility] bi-direct ional interface ; Source: Other Registry Influenza, seasonal, injectable administe red Note: [facility] bi- directional interface ; Source: Other Registry Influenza, seasonal, injectable administe red Note: [facility] bi- directional interface ; Source: Other Registry Payers Payer name Insurance type Covered constitution party ID Authoriza tion(s) No Information Social History Type Description Quantity Date Captured Comments Sex Male Smoking Status No Information Chief Complaint And Reason For Visit No Information Reason For Referral Reason For Referral No Information History Of Present Illness Encounter Date Complaint History Of Prese nt Illness No Information Functional Status Date Functional Assessmen t No Information Instructions Date Instruction Additional Infor mation No Information Assessments Type Assessment Date No Information Patient Care Teams Name Effective Dates (start - stop) Status Members No Information
--- OUTSIDE RECORDS SUMMARY | 2024-05-17 18:00 | XMS_ITS | Continuity of Care Document ---
Author Organization [facility] Address [address] [address] [place] [address] Phone Care Team Providers Care Fiction Writer Name Role Phone Jasvir Wilcox MD Unavailable Unavailab le Procedures Procedure Date Colonoscopy Flex; W/remov Les- 24 Advance Directives Directive Yes / No Effective Date File Name No Information Encounters Encounter Description Practice Location Reason(s) For Visit Diagnoses Date Provider Providers Copied on Encounter [facility], [address] [address], [place], [place], [id number], [place] tel:[phone] [facility] No Information 4 Jeri Tay. [address] [place] [address], [id number], [place]. tel:[phone] [facility], [address] [address], [place], [place], [id number], [place] tel:[phone] [facility] No Information 4 Jeri Tay. [address] [place] [address], [id number], [place]. tel:[phone] Referring Provider: Jasvir Birto, [address] [place] [address], [address]. tel:[phone] [facility], [address] [address], [facility] [place], [id number], [place] tel:[phone] [facility] No Information 4 Da Cronin. [address] [place] [address], [place], [place], [id number], [place]. tel:[phone] Family History Family Member Type Diagnosis Age [...] Registry Payers Payer name Insurance type Covered democrat ID Authoriza tion(s) No Information Social History [...]
--- OUTSIDE RECORDS SUMMARY | 2025-09-28 00:47 | XMS_ITS | Clinical Summary ---
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 1 Bottle 9 Active betamethasone dipropionate 0.05% (DIPROLENE) 0.05 % ointmentIndications :Contact dermatitis and eczema Apply topically to affected area(s) 2 times daily. 50 g 2 0 Active furosemide (LASIX) 20 mg tabletIndications:A cute systolic heart failure (HC) Take 1 Tablet (20 mg) by mouth once daily in the morning. 90 Tablet 3 4 Active aspirin (ECOTRIN) 81 mg enteric coated tabletIndications:I schemia Take 1 Tablet (81 mg) by mouth once daily with a meal. 90 Tablet 3 4 Active atorvastatin (Lipitor) 40 mg tabletIndications:N onobstructive atherosclerosis of coronary artery Take 1 Tablet (40 mg) by mouth once daily. 90 Tablet 3 4 Active metoprolol succinate (TOPROL XL) 25 mg Sustained-Release tabletIndications:P VC (premature ventricular contraction) Take 2 Tablets (50 mg) by mouth two times daily. 180 Tablet 3 4 Active sacubitril-valsarta n (ENTRESTO 24 MG-26 MG TABLET) 24-26 mg tabletIndications:H FrEF (heart failure with reduced ejection fraction) (HC) Take 1 Tablet by mouth two times daily. NO further refills until seen by Cardiology. Call [phone] to schedule 180 Tablet 1 Active Active Problems Problem Noted Date Diagnosed Date Nonobstructive atherosclerosis of coronary arter y 06/12/2024 Nonischemic cardiomyopathy 06/12/2024 NSVT (nonsustained ventricular tachycardia) 05/22 Nonrheumatic mitral valve regurgitation 04/05/20 24 Ejection fraction < 50% 04/05/2024 FAY HST 02/2016 AHI-12 03/15/2016 Contact dermatitis and other eczema, due to unspecified cause 11/18/2011 Displacement of lumbar inter vertebral disc without myelopathy 11/24/2010 Sciatica 08/24/2010 Tobacco use disorder 07/18/2007 Resolved Problems Problem Noted Date Diagnosed Date Resolved Date Elevated blood pressure read ing without diagnosis of hypertension 11/18/2011 07/11/2025 Overview (11/18/2011): I suggested that we start medications today. 11/18/2011 Patient reluctant; wants to work at quitting smoking first. To follow up in 2 months; check blood pressure frequently in meantime. Macrocytosis without anemia 09/24/2010 11/18/2011 Encounters Date Type Department Care Team Description 08/22/2025 Procedure Only [facility] [address] [place] [address] Device Check (REMOTE [employer] DUAL CHAMBE... 08/21/2025 10:25 AM CDT Office Visit [facility] [address] [place] [address] Kaitlyn Carmona NP Ear Problem 08/21/2025 Travel 07/12/2025 8:45 AM CDT Office Visit [facility] [address] [facility] [place] [address] Kaitlyn Carmona NP Medicare ANNUAL (subsequent) Visit (Non fasting) 07/11/2025 Travel from Last 3 Months Immunizations Immunization Administration Dates Next Due AMB Influenza, IIV3 (Age >=3 years)(Flu Clinic [facility]) 10/08/2008 Influenza, IIV3 (Age >=3 years) 10/20/2007 Tdap 05/29/2010 Family History Medical History Relation Name Comments Heart Disease Brother 1 Chris Cancer Sister 1 Lazara Breast: eventua lly metastatic; of Liver complications 2010 Other Sister 2 Emani Rheumatic Fever w complications Anesthesia Problem No Family History Blood Disease No Family History Relation Name Status Comments Brother 1 Chris Alive Brother 2 Anthony Alive Father Donn (Age 80) Mother Freya (Age 85) Sister 1 Lazara (Age 64) Sister 2 Emani Alive Sister 3 Isaias Alive Social History Tobacco Use Types Packs/Day Years Used Date Smoking Tobacco: Former Cigarettes Q uit: 11/21/2014 Passive Smoke Exposure: Never Smokeless Tobacco: Never Tobacco Cessation:Counseling Given: Not Answered Comments:Quit smoking 07/10/2024 Alcohol Use Standard Drinks/Week Comments Not Currently 0 (1 standard drink = 0.6 oz pur e alcohol) quit drinking 07/10/2024 PHQ-2 Answer Date Recorded PHQ-2 TOTAL SCORE 0 07/12/2025 Social Connections Answer Date Recorded Do you often feel lonely or isolated from those around you? 0 07/11/2025 Alcohol Use Answer Date Recorded How often do you have a drink containing alcohol ? 0 08/21/2025 How many drinks containing a lcohol do you have on a typical day when you are drinking? 0 08/21/2025 How often do you have five or more drinks on one occasion? 0 08/21/2025 Financial Resource Strain Answer Date R ecorded Difficulty of Paying Living Expenses 3 07/11/2025 Difficulty of Paying Living Expenses Not on file 07/11/2025 Food Insecurity Answer Date Recorded Do you worry your food will run out before you are able to buy more? 1 07/11/2025 Transportation Needs Answer Date Record ed Does lack of transportation keep you from medica l appointments? 1 07/11/2025 Does lack of transportation keep you from work, meetings or getting things that you need? 1 07/11/2025 Housing Stability Answer Date Recorded What is your housing situation today? 1 07/11/2025 Interpersonal Safety Answer Date Record ed Are you being hit, kicked, p ushed or yelled at (see row info)? Unable to assess, family/SO in room. 10/04/2024 Interpersonal Safety Abuse 12 - 18 Not on file 10/04/2024 Interpersonal Safety Ambulat ory Vulnerability Not on file 10/04/2024 Utilities Answer Date Recorded Do you have trouble paying f or utilities (for example, heat, electricity, water, phone)? 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 [employer] Not on file Not on file Not on greta e Obstetrics History Last Filed Vital Signs Vital Sign Reading Time Taken Comments Blood Pressure 146/88 08/21/2025 11:22 AM CDT Pulse 78 08/21/2025 10:35 AM CDT Temperature 35.8 C (96.4 F) 09/13/2024 11:37 AM CDT Respiratory Rate 14 10/04/2024 9:26 AM [employer] Oxygen Saturation 97% 07/12/2025 8:46 AM CDT Inhaled Oxygen Concentration - - Weight 96.8 kg (213 lb 4.8 oz) 08/21/2025 10:35 AM CDT Height 180.3 cm (5' 11) 07/12/2025 8:46 AM CDT Body Mass Index 29.75 07/12/2025 8:46 AM CDT Plan of Treatment Upcoming Encounters Date Type Department Care Team (Late st Contact Info) Description 11/22/2025 Procedure Only [facility] [address] [facility] [address] [place] [address] Health Maintenance Due Date Last Done Comments Pneumococcal series for age 50+ (1 of 2 - PCV) 1976 Zoster (shingles) series for age 50+ (1 of 2) 2007 RSV vaccine for adults or (1 - Risk 60-74 years 1-dose series) 2017 Tetanus booster 05/29/2020 05/29/2010 AAA screening age 65-74 2022 Influenza Vaccine (#1) 2025 10/08/2008, 2006 BMI (ht and wt on same day) for age 18+ 07/12/2026 07/12/2025, 01/07/2025, 09/04/2024, Additional history exists Depression screening for age 12+ 07/12/2026 07/12/2025, 04/17/2024, 05/28/2020, Additional history exists Medicare Wellness for age 65+ 07/13/2026 07/12/2025 Colonoscopy through age 75 05/18/2027 05/18/2024 Lipids for age 45-75 03/27/2029 03/27/2024, 11/08/20 11 Hepatitis C screening for age 18-79 Completed 03/27/2024 Hepatitis B series for 19+ Aged Out N o longer eligible based on patient's age to complete this topic Procedures Procedure Name Priority Date/Time Associated Diagnosis Comments COLONOSCOPY 05/18/2024 9:49 AM CDT ANTI HCV Routine 03/27/2024 9:21 AM CDT Encounter for hepatitis C screening test for low risk patient LIPID PANEL W REFLEX MEASURED LDL Routine 03/27/2024 9:21 AM CDT Lipid screening from Last 3 Months or Most Recently Relevant to Health Maintenance Results * COLONOSCOPY (05/18/2024 9:49 AM CDT) 05/18/2024 9:49 AM CDT Narrative Transcriptions Jasvir Wilcox MD - 05/18/2024 10:29 AM CDT Patient Name: Luciano Shaver Procedure Date: 05/18/2024 Gender: Male Date of : 1955 Admit Type: Ambulatory Procedure: Colonoscopy Proceduralist: Jasvir Wilcox MD - [facility] Referring MD: Kaitlyn Carmona Indications/Pre-Op Diagnosis: Positive Cologuard test Medications: Monitored Anesthesia Care Procedure Description: The patient had risks, benefits and alternatives explained to andgave informed consent. The patient had a stable cardiopulmonary status and judged an adequate candidate for conscious sedation. The endoscope [id number]-[id number] was passed through the anus andadvanced to the cecum, identified by appendiceal orifice and ileocecal valve.The colonoscopy was performed without difficulty. The patient toleratedthe procedure well. The quality of the bowel preparation was good. Anatomical landmarks were photographed. Complications: No immediate complications. Estimated Blood Loss & Specimen: Estimated blood loss: none. Specimen collected: Yes and sent to Laboratory Findings: A 10 mm polyp was found in the transverse colon. The polyp wassessile. The polyp was removed with a cold snare. Resection and retrieval were complete. A 15 mm polyp was found in the sigmoid colon. The polyp was sessile.The polyp was removed with a cold snare. Resection and retrieval were complete. To prevent bleeding after the polypectomy, one hemostaticclip was successfully placed. There was no bleeding at the end of the procedure. A few diverticula were found in the sigmoid colon. Internal hemorrhoids were found during retroflexion. Impressions/Post-Op Diagnosis: - One 10 mm polyp in the transverse colon, removed with a cold snare. Resected and retrieved. - One 15 mm polyp in the sigmoid colon, removed with a cold snare. Resected and retrieved. Clip was placed. - Diverticulosis in the sigmoid colon. - Internal hemorrhoids. Recommendation: - Discharge patient to home. - Await pathology results. - Repeat colonoscopy for surveillance based on pathology results. - Return to primary care physician. Jasvir Wilcox MD 05/18/2024 10:29:22 AM Note Initiated On: 05/18/2024 9:49 AM Total Procedure Duration Time 0 hours 14 minutes 57 seconds Jasvir Wilcox MD PROCEDURE ORD Fin al Result * LIPID PANEL W REFLEX MEASURED LDL (03/27/2024 9:21 AM CDT) CHOLESTEROL,TOTAL 167 100 - 199 mg/dL 03/27/2024 6:55 PM CDT [facility] Comment: Cholesterol, Total Reference Ranges Desirable <200 mg/dL Borderline 200-239 mg/dL High >=240 mg/dL TRIGLYCERIDES 58 <150 mg/dL 03/27/2024 6:55 PM CDT [facility] HDL CHOLESTEROL 43 >40 mg/dL 6:55 PM CDT [facility] NON-HDL CHOLESTEROL 124 <145 mg/dl 03/27/2024 6:55 PM CDT [facility] CHOL/HDL RATIO 3.88 <4.50 03/27/2024 6:55 PM CDT [facility] LDL CHOLESTEROL 112 <=130 mg/dL 03/27/2024 6:55 PM CDT [facility] VLDL CHOLESTEROL 12 <=30 mg/dL 03/27/2024 6:55 PM CDT [facility] PROVIDER ORDERED STATUS RANDOM 03/27/2024 6:55 PM CDT [facility] Blood BLOOD SPECIMEN / Unknown Venipuncture / Unknown 03/27/2024 9:21 AM CDT 03/27/2024 9:21 AM CDT us Kaitlyn Carmona DIRECTOR OF COMPLIANCE CHEMISTRY Final Res ult [facility] [address] [place] [address], [place] * ANTI HCV (03/27/2024 9:21 AM CDT) HEPATITIS C ANTIBODY Non-Reacti ve Non-React pardeep 03/27/2024 8:29 PM CDT [facility] [employer] Comment:Please note, per www .CDC.gov: If a patient is known to be at high risk of HCV infection, or is symptomatic, and the physician's suspicion of HCV infection is high, HCV RNA testing is often employed and is of diagnostic value, even after an initial negative anti-HCV test result. Blood BLOOD SPECIMEN / Unknown Venipuncture / Unknown 03/27/2024 9:21 AM CDT 03/27/2024 9:21 AM CDT us Kaitlyn Carmona DIRECTOR OF COMPLIANCE SEND OUTS Final Res ult [facility] [address] [place] [address], [place] from Last 3 Months or Most Recently Relevant to Health Maintenance Insurance [facility] MEDICARE [place] ONLY MEDICARE PART A [place] ONLY Member Subscriber Plan / Payer (Ef fective 2023-Present) Name:Luciano Shaver Member ID:[id number] Relation to Subscriber:Self Name:Luciano Shaver Subscriber ID:[id number] Payer ID:Not on file Type:Not on file Address: ATTN: CLAIMS [address] MEDICARE PART B [place] ONLY Member Subscriber Plan / Payer ( fective 2023-Present) Name:Luciano Shaver Member ID:[id number] Relation to Subscriber:Self Name:Luciano Shaver Subscriber ID:[id number] Payer ID:Not on file Group ID:Not on file Type:Not on file Address: ATTN: CLAIMS [address] Advance Directives * Full Code (Latest Code Status on File) Date Activated Date Inactivated Comments 10/04/2024 12:08 PM 10/04/2024 6:42 PM Question Answer Comments Code Status Discussion: Reviewed Preferences * Full Code Date Activated Date Inactivated Comments 06/12/2024 10:20 AM 06/12/2024 8:17 PM Question Answer Comments Code Status Discussion: Reviewed Preferences * Full Code Date Activated Date Inactivated Comments 05/18/2024 8:29 AM 05/18/2024 6:39 PM Question Answer Comments Code Status Discussion: Reviewed Preferences Care Teams Rock Crushing Machine Operator Relationship Specialty [place] [address] [place] [address] PCP - General Nurse Practitioner 04/09/24
[2025-09-28 00:50] VITALS: BP 154/89; PULSE 74; RESP 16; TEMP 36.5; O2SAT 99; BMI 29.3
--- NOTE | 2025-09-28 00:58 | CRLHL7_ITS ---
For Patients: As a result of the Cures Act, medical imaging exams and procedure reports are released immediately into your electronic medical record. You may view this report before your referring provider. If you have questions, please contact your health care provider. INDICATION: Trauma, fall. TECHNIQUE: CT cervical spine without contrast. COMPARISON: None. FINDINGS: Vertebrae: Straightening of the normal cervical lordosis, which may be due to muscle spasm or positioning. There are no fractures or suspicious bony lesions. Discs and facet joints: Multilevel disc degeneration and facet arthropathy. Extraspinal findings: Paraspinous soft tissues are unremarkable. IMPRESSION: No acute fracture or traumatic subluxation of the cervical spine. Please note that all CT scans at this facility use dose modulation, iterative reconstruction, and/or weight-based dosing when appropriate to reduce radiation dose to as low as reasonably achievable. Dictated by Jared Fernandez MD @ 09/28/2025 1:57:05 AM (Electronically Signed)
--- NOTE | 2025-09-28 00:58 | CRLHL7_ITS ---
For Patients: As a result of the Century Cures Act, medical imaging exams and procedure reports are released immediately into your electronic medical record. You may view this report before your referring provider. If you have questions, please contact your health care provider. INDICATION: Trauma, fall. TECHNIQUE: CT head without contrast. COMPARISON: None. FINDINGS: CSF spaces: Proportionate prominence of the ventricles and sulci, reflecting mild generalized cerebral volume loss. Brain parenchyma: The arriaga-white differentiation is maintained. No evidence of intracranial hemorrhage, extra-axial collection, or midline shift. Skull base and calvarium: Mild mucosal thickening in the maxillary sinuses. Mastoid air cells are clear. The visualized orbits are grossly unremarkable. No skull fractures. Left vertex scalp soft tissue swelling. IMPRESSION: 1. No acute intracranial abnormality. 2. Left vertex scalp soft tissue swelling. No acute calvarial fracture. Please note that all CT scans at this facility use dose modulation, iterative reconstruction, and/or weight-based dosing when appropriate to reduce radiation dose to as low as reasonably achievable. Dictated by Jared Fernandez MD @ 09/28/2025 1:55:33 AM (Electronically Signed)
[2025-09-28] MEDS: LIDOCAINE/EPINEP/TETRACAINE 3 ML GEL..ML. TOPICAL (01:00)
--- NOTE | 2025-09-28 01:18 | ED.WOUNDLAC ---
HPI - Wound/Laceration General Date Seen: 09/28/25 Chief Complaint: Laceration/Wound Stated Complaint: head laceration Time Seen by Provider: 09/28/25 00:57 Source: patient, family, RN notes reviewed and old records reviewed Mode of arrival: ambulatory Limitations: no limitations History of Present Illness HPI narrative: Luciano is a 70-year-old male with out of date tetanus per his report, history of nonischemic cardiomyopathy with EF 40>45%%, frequent PVCs/NSVT with a burden of around 25%, moderate nonobstructive coronary artery disease, moderate to severe mitral regurgitation, tobacco use, alcohol abuse, hypertension, hyperlipidemia, hypertension not currently on blood thinners who comes to the emergency room for evaluation regarding a head wound. Perfecto states He was walking in the hallway in the entryway of his home and tripped over a box that had not been there previously. He fell forward catching the scalp on the door hinge. He had significant bleeding but no loss of consciousness. He denies any neck pain, vomiting, chest pain shortness of breath. He does admit to using alcohol tonight. Somewhat of a challenging historian. He denies tobacco use but his family knots that he does use tobacco. When asked about alcohol use also some evaluation. Does admit to more than 4 drinks tonight. Family Is with him tonight. His is able to confirm his medications. Denies any allergies. Related Data Home Medications ?Medication ?Instructions ?Recorded ?Confirmed furosemide 20 mg tablet 20 mg PO DAILY 05/25/24 09/14/24 isosorbide mononitrate 30 mg 30 mg PO DAILY 05/25/24 05/25/24 tablet,extended release 24 hr metoprolol succinate 25 mg 25 mg PO DAILY 05/25/24 09/14/24 tablet,extended release 24 hr atorvastatin 40 mg tablet 40 mg PO DAILY 09/14/24 09/14/24 sacubitril 24 mg-valsartan 26 mg 1 tab PO BID 09/14/24 09/14/24 tablet (Entresto) Allergies Allergy/AdvReac Type Severity Reaction Status Date / Time No Known Drug Allergies Allergy Verified 10/06/22 17:25 Review of Systems Status of ROS: Reports: 6 or more systems reviewed and unremarkable except as noted in History and below Const: Denies: fever Eyes: Denies: change in vision or blurry vision ENMT: Denies: neck pain Cardio: Denies: chest pain or lightheadedness Resp: Denies: cough GI: Denies: vomiting Musculo: Denies: back pain, neck pain or extremity pain Neuro: Denies: headache or weakness in extremities [facility] Social History Smoking Status: Never smoker How often do you have a drink containing alcohol: 4 or more times a week How many standard drinks containing alcohol do you have on a typical day: 3 or 4 How often do you have six or more drinks on one occasion: Never AUDIT-C Alcohol total score: 5 Non-prescribed substance use: denies use service: No Exam Narrative: Exam Narrative: I meet patient in exam room 5. His head is wrapped and as we remove it he it is noted that he has a large v-shaped laceration vertex anterior with significant bleeding from the left side. This is cleansed and 3 oliver are immediately placed and the wound is now hemostatic. Let is then applied to the rest of the wound. Airway is open Breathing is easy Circulation -bleeding from the wound now controlled. Disability -GCS of 15. Intoxicated with minimally slurred speech. No other deformities. Patient is alert and oriented. Evasive in answering some questions. Obeying commands. EOM is full and pupils are equal and round. Face symmetrical. Moist mucous membranes. Examination of the scalp shows a large v-shaped laceration with the tip anterior. Total length 8 cm. This compromises epidermis and dermis. After oliver are placed the rest of the wound is hemostatic. No neck pain with palpation. Heart with regular rate and rhythm and lungs are clear. Abdomen soft. Palpation of anterior chest thoracic spine lumbar spine without pain. No pain with palpation over knees lower extremities. Pelvis is stable. Const: Vital Signs, click to edit/add: Vital Signs - 24 hr 09/28/25 00:50 Temperature 97.7 F Pulse Rate [Pulse Oximeter] 74 Respiratory Rate 16 Blood Pressure [Ri ght Upper Arm] 154/89 H Pulse Oximetry 99 Oxygen Delivery Me thod Room Air Documenting provider has reviewed patient's vital signs: yes Course Course ED Course: Differential diagnosis includes head laceration -wound is now hemostatic. Given history of alcohol use cannot exclude underlying head bleed skull fracture given the significance of the laceration this appears to be quite traumatic. Given alcohol use cannot exclude underlying cervical spine injury. Thus head and cervical spine CTs are ordered. Let is applied with the hopes that we can place oliver in the rest of the wound upon his return. Did clarify that this fall was not down steps but was from standing position. Reevaluation(s) Reevaluation #1: Patient noted to have continued bleeding from the left side of his head. We were able to clean off more of the wound and the laceration actually extends even further down. Length of the laceration on the left side is 7 cm and on the right 4 cm further oliver were placed along with Gelfoam in this did stop the bleeding. Reevaluation #2: Patient's last tetanus confirmed in 2009. Adacel will be ordered. Vital Signs Vital signs: Initial Vital Signs Temperature 97.7 F 09/28/25 00:50 Temperature Source Temporal Artery Scan 09/28/25 00:50 Pulse Rate 74 09/28/25 00:50 Respiratory Rate 16 09/28/25 00:50 Blood Pressure 154/89 H 09/28/25 00:50 Blood Pressure Mean 110 H 09/28/25 00:50 Blood Pressure Position Sitting 09/28/25 00:50 Pulse Oximetry 99 09/28/25 00:50 Oxygen Delivery Method Room Air 09/28/25 00:50 Vital Signs Temperature 97.7 F 09/28/25 00:50 Pulse Rate 74 09/28/25 00:50 Respiratory Rate 16 09/28/25 00:50 Blood Pressure 154/89 H 09/28/25 00:50 Pulse Oximetry 99 09/28/25 00:50 Oxygen Delivery Method Room Air 09/28/25 00:50 Temperature 97.7 F 09/28/25 00:50 Pulse Rate 74 09/28/25 00:50 Respiratory Rate 16 09/28/25 00:50 Blood Pressure 154/89 H 09/28/25 00:50 Pulse Oximetry 99 09/28/25 00:50 Oxygen Delivery Method Room Air 09/28/25 00:50 Medications Administered Medications: Discontinued Medications Generic Name Dose Route Start Last Admin Trade Name Freq PRN Reason Stop Dose Admin Diphtheria/Tetanus/Acell Pertussis 0.5 ml 09/28/25 01:38 09/28/25 01:41 Tetanus/Diphth/Pertussis 0.5 Ml Syringe IM 09/28/25 01:39 0.5 ml .ONCE ONE Administration Lidocaine/Epinephrine/Tetracaine 3 ml 09/28/25 00:58 09/28/25 01:00 Lidocaine/Epinep/Tetracaine 3 Ml Gel..Ml. TOPICAL 09/28/25 00:59 3 ml ONCE ONE Administration MDM - Wound/Laceration MDM Narrative Medical decision making narrative: 1. Head laceration - v-shaped laceration quite large on the posterior prior to scalp is sutured as well as stapled. Continued increased bleeding from the left with discovery of further extension of the laceration. Treated with oliver and Gelfoam with success. On the right side an apex of the wound swelling of the tissue itself was such that the sutures were necessary in lieu of oliver. Three separate sutures were placed. Both oliver and sutures should be removed in 10 days time. Monitor for signs and symptoms of infection and seek medical attention should these occur. 2. Closed head injury - no L loss of consciousness. Patient has bruising on both the frontal and posterior parietal area from trauma. Would avoid alcohol for the next week and seek medical attention for vomiting, change in personality, increasing headache and as needed 3. Alcohol use- patient with a GCS of 15, cooperative. Recommend abstinence over the next week while monitoring head injury 4. tetanus update-Tetanus given tonight. 5. Disposition-Home at this time. Seek medical attention for worsening symptoms and as needed. Medical Records Attestation: I reviewed the patient's medical records. Imaging Data cervical spine CT: Attestation: I have reviewed the pertinent imaging results. My impression: No evidence of fracture. Radiologist's impression: Vertebrae: Straightening of the normal cervical lordosis, which may be due to muscle spasm or positioning. There are no fractures or suspicious bony lesions. Discs and facet joints: Multilevel disc degeneration and facet arthropathy. Extraspinal findings: Paraspinous soft tissues are unremarkable. IMPRESSION: No acute fracture or traumatic subluxation of the cervical spine. CT scan - head: Attestation: I have reviewed the pertinent imaging results. My impression: By my read no skull fracture intraparenchymal bleed. Radiologist's impression: CSF spaces: Proportionate prominence of the ventricles and sulci, reflecting mild generalized cerebral volume loss. Brain parenchyma: The arriaga-white differentiation is maintained. No evidence of intracranial hemorrhage, extra-axial collection, or midline shift. Skull base and calvarium: Mild mucosal thickening in the maxillary sinuses. Mastoid air cells are clear. The visualized orbits are grossly unremarkable. No skull fractures. Left vertex scalp soft tissue swelling. IMPRESSION: 1. No acute intracranial abnormality. 2. Left vertex scalp soft tissue swelling. No acute calvarial fracture. Discharge Plan Discharge Clinical Impression: Laceration, Closed head injury, Tetanus toxoid inoculation Patient Disposition: Home, Self-Care Condition: Improved Additional Instructions: staple and suture removal in 10 days time. You may shower with this wound gently cleansing with soap but do not submerge her head such as with swimming or in a pool. Seek medical attention for signs of infection such as pus from the wound, fever. Monitor for concussion. Seek medical attention for vomiting, change in thinking. Avoid alcohol for the next week. Return as needed. Prescriptions: No Action isosorbide mononitrate 30 mg tablet extended release 24 hr 30 mg PO DAILY furosemide 20 mg tablet 20 mg PO DAILY metoprolol succinate 25 mg tablet extended release 24 hr 25 mg PO DAILY atorvastatin 40 mg tablet 40 mg PO DAILY Entresto 24-26 mg tablet 1 tab PO BID Follow Up/Referrals: Kaitlyn Carmona, POISER, [employer]ION OFFICER [Primary Care Provider, Family Practice] Stand Alone Forms: [facility] Info Instructions Procedures Laceration Laceration 1: Pre procedure diagnosis: V-shaped flap laceration scalp Post procedure diagnosis: laceration repair scalp Site marking: not applicable Name of person performing procedure: Pamela Watson Site: scalp Size (cm): 11 Description: linear, flap and clean Depth: simple, single layer Local Anesthetic: lidocaine 1% and with epi Amount of anesthesia used (mL): 1.5 Pre-repair: wound explored Skin layer closed with: nylon Size (cm): 4-0 Number of sutures: 3 Technique: simple, interrupted ( 1 simple stitch anterior to horizontal mattress), horizontal mattress ( horizontal mattress 1 anterior to 2 oliver on the right) and other ( subcutaneous stitch on the flap V.) Estimated blood loss (if any): less than 5mls Conclusion: patient tolerated procedure
[2025-09-28] MEDS: TETANUS/DIPHTH/PERTUSSIS 0.5 ML SYRINGE IM (01:41)
== END 2025-09-28 02:49 | disposition home or self-care (01) ==
PROVIDERS: Emergency Provider Family Medicine; PCP Nurse Practitioner Family
DX: S01.01XA Laceration without foreign body of scalp, initial encounter (principal); S09.90XA Unspecified injury of head, initial encounter; W01.10XA Fall on same level from slipping, tripping and stumbling with subsequent striking against unspecified object, initial encounter; Y92.008 Other place in unspecified non-institutional (private) residence as the place of occurrence of the external cause
CPT/HCPCS: 12004; 70450; 72125; 90471; 90715; 99284